=== PATIENT | male | born 1960 | race Hispanic/Latino ===

== ENCOUNTER 2018-07-08 15:39 | Inpatient (IN) | payer OTHER ==
--- NOTE | 2018-07-08 18:07 | C.PDOC ---
History Of Present Illness 57 y/o male, w/PMhx of IDDM and ETOH abuse, presents to the ER for ETOH withdrawal. Patient states that he feels tremulous, nauseous, and diaphoretic. Patient is requesting detox from ETOH. Denies having fever, headache,chills, and vomiting. Time Seen by Provider: 07/08/18 17:02 Chief Complaint (Nursing): Substance Abuse History Per: Patient History/Exam Limitations: no limitations Onset/Duration Of Symptoms: Days Current Symptoms Are (Timing): Still Present Severity: Moderate Past Medical History Reviewed: Historical Data, Nursing Documentation, Vital Signs Vital Signs: Last Vital Signs Temp 98.0 F 07/08/18 16:01 Pulse 108 H 07/08/18 16:01 Resp 16 07/08/18 16:01 BP 146/92 H 07/08/18 16:01 Pulse Ox 95 07/08/18 16:01 - Medical History PMH: HTN Surgical History: No Surg Hx Family History: States: No Known Family Hx - Social History Hx Alcohol Use: Yes Hx Substance Use: No - Immunization History Hx Tetanus Toxoid Vaccination: No Hx Influenza Vaccination: No Hx Pneumococcal Vaccination: No Review Of Systems Except As Marked, All Systems Reviewed And Found Negative. Constitutional: Negative for: Fever, Chills Gastrointestinal: Positive for: Nausea. Negative for: Vomiting Neurological: Negative for: Headache Physical Exam - Physical Exam Appears: Other (unkempt) Skin: No Normal Color (flushed), Warm, Dry, Other (abrasions to bilateral wrists) Head: Atraumatic, Normacephalic Eye(s): bilateral: Normal Inspection Nose: Normal Oral Mucosa: Moist Neck: Supple Chest: Symmetrical Cardiovascular: Rhythm Regular Respiratory: Normal Breath Sounds, No Rales, No Rhonchi, No Wheezing Gastrointestinal/Abdominal: Soft, No Tenderness, No Guarding, No Rebound, Other (obese) Neurological/Psych: Oriented x3, Normal Speech ED Course And Treatment - Laboratory Results Result Diagrams: 07/08/18 18:36 O2 Sat by Pulse Oximetry: 95 (RA) Pulse Ox Interpretation: Normal Medical Decision Making Medical Decision Making: Plan: --Labs --UA Disposition Counseled Patient/Family Regarding: Studies Performed, Diagnosis - Disposition Disposition: HOSPITALIZED Disposition Time: 19:07 Condition: GUARDED Forms: [employer] (Serbian) - POA Present On Arrival: None - Clinical Impression Clinical Impression: Alcohol abuse - Scribe Statement The provider has reviewed the documentation as recorded by the Scribe Margaret Chowdhury Provider Attestation: All medical record entries made by the Scribe were at my direction and personally dictated by me. I have reviewed the chart and agree that the record accurately reflects my personal performance of the history, physical exam, medical decision making, and the department course for this patient. I have also personally directed, reviewed, and agree with the discharge instructions and disposition. Physician Patient Turnover Patient Signed Over To: Laila Farrell Handoff Comments: med clearance and crisis.
[2018-07-08 18:55] LABS: BASO # 0.1 K/uL (0.0-0.2); BASO % 0.8 % (0.0-2.0); EOS % 0.6 % (0.0-4.0); HEMOGLOBIN 17.1 g/dL (12.0-18.0); MEAN CELL VOLUME 91.2 fL (80.0-94.0); MEAN PLATELET VOLUME 7.6 fL (7.2-11.7); MONO # 0.8 K/uL (0.0-0.8); MONO % 11.2 % (0.0-10.0); NEUT # 5.2 K/uL (1.8-7.0); NEUT % 73.4 % (50.0-75.0); NRBC % 0.3 % (0.0-2.0); RBC 5.52 Mil/uL (4.40-5.90)
[2018-07-08 19:03] LABS: URINE BACTERIA FEW (<OCC); URINE BILIRUBIN 1+ (NEGATIVE); URINE BLOOD 2+ (NEGATIVE); URINE CLARITY Hazy (Clear); URINE COLOR Amber (YELLOW); URINE GLUCOSE (UA) 3+ mg/dL (Normal); URINE LEUKOCYTE ESTERASE 2+ Leu/uL (Negative); URINE PROTEIN 3+ mg/dL (NEGATIVE)
[2018-07-08 19:27] LABS: ALB/GLOB RATIO 1.3 (1.0-2.1); ALBUMIN 4.7 g/dL (3.5-5.0); ALT/SGPT 79 U/L (21-72); AST/SGOT 143 U/L (17-59); BLOOD UREA NITROGEN 5 mg/dL (9-20); CALCIUM 9.3 mg/dl (8.6-10.4); GFR NON-AFRICAN AMERICAN > 60
[2018-07-08 19:32] LABS: BARBITURATES, UR NEGATIVE (NEGATIVE); OPIATES, UR NEGATIVE (NEGATIVE); PHENCYCLIDINE, UR NEGATIVE (NEGATIVE)
[2018-07-08 19:33] LABS: BENZODIAZEPINES, UR POSITIVE (NEGATIVE)
[2018-07-08] MEDS ORDERED: Tmp-Smz 800 mg-160 mg DS Tab PO STA (19:49)
[2018-07-09] MEDS: (Novolog) Insulin Aspart, Recombinant 100 u/ml 10 ml vial SC SCH ×4 (08:19→21:46)
[2018-07-09] MEDS: Tmp-Smz 800 mg-160 mg DS Tab PO SCH ×2 (10:37→21:32)
[2018-07-09] MEDS: Multiple Vitamins Tab PO SCH (10:37)
--- NOTE | 2018-07-09 13:26 | PCM.PSYCH ---
Initial Psychiatric Evaluation - Initial Psychiatric Evaluation Type of Admission: Voluntary Legal Status: Capacity Chief Complaint (in patient's own words): "I want to detox from alcohol" History of Present Illness and Precipitating Events: Patient seen, chart reviewed, case discussed Patient is a 57-year-old , unemployed white male with 2 children ages 27 and 30, who lives with his mother. The patient states that he is unable to work because of the neuropathy in his feet. The patient had his first drink at the age of 11 but his drinking became a problem for him in the past 2-3 years. The patient was clean from alcohol for 50+ days but then relapsed about 2 months ago and has been drinking 0.5 or more gallons of vodka per day. The patient denies any history of heroin, marijuana, or pill use and has been clean from Percocet and cocaine for 3 years but smokes 1.5 packs per day. The patient has been to detox once and to rehab once in the past. The patient denies any history of blackouts, seizures, or trauma. Past Psych History: denies but now feels somewhat depressed, no SI Past Medical History: Neuropathy in feet, DM Family Psych History: denies Current Medications: Active Medications Generic Name Dose Route Start Last Admin Trade Name Freq PRN Reason Stop Dose Admin Clonidine HCl 0.1 mg 07/08/18 21:00 07/09/18 05:30 Catapres PO 0.1 mg Q6 PRN Administration alcohol withdrawal Folic Acid 1 mg 07/09/18 10:00 07/09/18 10:37 Folic Acid PO 1 mg DAILY SONIA Administration Gabapentin 400 mg 07/09/18 14:00 Neurontin PO TID SON[facility] Hydroxyzine HCl 25 mg 07/08/18 22:10 07/08/18 22:24 Atarax PO 25 mg Q6H PRN Administration Anxiety Ibuprofen 400 mg 07/08/18 22:10 Motrin Tab PO Q6H PRN Pain, moderate (4-7) Insulin Aspart 0 unit 07/09/18 07:30 07/09/18 12:18 Novolog SC 6 units ACHS SONIA Administration Protocol Lorazepam 1 mg 07/08/18 21:00 07/09/18 05:30 Ativan PO 1 mg Q6 PRN Administration alcohol withdrawal Lorazepam 1 mg 07/08/18 22:00 07/09/18 10:43 Ativan PO 07/13/18 21:59 1 mg Q6H SONIA Administration Taper Multivitamins 1 tab 07/09/18 10:00 07/09/18 10:37 Hexavitamin PO 1 tab DAILY [facility]ONIA Administration Ondansetron HCl 4 mg 07/08/18 23:16 Zofran Tab PO Q6 PRN Nausea/Vomiting Quetiapine Fumarate 50 mg 07/09/18 22:00 Seroquel PO HS SON[facility] Thiamine HCl 100 mg 07/09/18 10:00 07/09/18 10:37 Vitamin B1 Tab PO 100 mg DAILY SONIA Administration Trazodone HCl 50 mg 07/08/18 22:00 07/08/18 22:25 Desyrel PO 50 mg HS PRN Administration Insomnia Trimethoprim/Sulfamethoxazole 1 tab 07/09/18 10:00 07/09/18 10:37 Bactrim Ds Tab PO 07/15/18 22:01 1 tab Q12H SONIA Administration Protocol Past Psychiatric History - Past Psychiatric History Previous Treatment History: None Pertinent Medical Hx (Current Medical&Sleep Prob, Allergies): Allergies Allergy/AdvReac Type Severity Reaction Status Date / Time No Known Allergies Allergy Verified 07/08/18 16:05 Quetiapine Fumarate [Seroquel] 50 tab PO HS MDD 50 07/08/18 Review of Systems - Integumentary Integumentary: Lesions (under the feet, small) - Neurological Neurological: Tremor - Psychiatric Psychiatric: Abnormal Sleep Pattern, Difficulty Concentrating, Irritability, Mood Swings. absent: Anxiety, Confusion, Depression, Hallucinations, Homicidal Ideation, Paranoia, Suicidal Ideation Mental Status Examination - Personal Presentation Personal Presentation: Looks stated age - Affect Affect: Broad - Motor Activity Motor Activity: Psychomotor Retardation - Reliability in Providing Information Reliability in Providing Information: Good - Speech Speech: Organized, Relevant, Coherent - Mood Mood: Neutral - Formal Thought Process Formal Thought Process: No Impairment - Obsessions/Compulsions Obsessions: No Compulsions: No - Cognitive Functions Orientation: Person, Place, Situation, Time Sensorium: Alert Attention/Concentration: Attentive Abstract Thinking: [place] Judgement: Intact, as evidence by: Good judgement Memory: Recent intact, as evidence by: Ability to recall events of the day, Remote intact, as evidenced by: Abilit to recall sig. life events - Risk Risk: Withdrawal, Diminished functioning - Strength & Assets Inventory Strength & Assets Inventory: Cooperative - Limitations Limitations: Other DSM 5 DX - DSM 5 DSM 5 Diagnosis: Alcohol withdrawal Alcohol use d/o--severe Tobacco use d/o Depressive d/o - unspecified - Recommended/Plan of Treatment Treatment Recommendations and Plan of Treatment: Taper with Ativan Gabapentin for augmentation remeron for dep and insomnia As needed medication All risks, benefits and alternatives of the meds discussed and the patient agreed and understood Attend groups and activities Supportive therapy and psychoeducation [place] for abstinence CBT for relapse prevention Encourage MAT Refer to rehab or IOP, and self-help groups Teach healthy lifestyle methods, i.e. diet, exercise, meditation Smoking cessation with [place] Nicotine patch if needed Podiatry consult 34 min Projected ELOS: 4-5 days - Smoking Cessation Smoking Cessation Initiated: Yes
[2018-07-10] MEDS: (Novolog) Insulin Aspart, Recombinant 100 u/ml 10 ml vial SC SCH ×4 (07:48→21:18)
[2018-07-10] MEDS: Multiple Vitamins Tab PO SCH (09:11)
[2018-07-10] MEDS: Tmp-Smz 800 mg-160 mg DS Tab PO SCH ×2 (09:16→21:18)
--- NOTE | 2018-07-10 11:19 | PCM.BM ---
<Jaimie Bills - Last Filed: 07/10/18 11:17> Treatment Plan Problems - Problems identified on initial assessmt potential for alcohol withdrawals Date Initiated: 07/08/18 Assessment reference: NA Status: Active Treatment assets and liabiliti Patient Assests: adapts well, cooperative, motivated, ADL independent, negotiates basic needs Patient Liabilities: financial problems, poor support system, substance abuse, medical problems, other - Milieu Protocol Maintain good personal hygiene: daily Encourage regular showers, daily Remind patient to perform daily oral care, daily Assist patient to perform ADL's Conduct patient checks and document Observation sheet: Q15 minutes Maintain personal safety: every shift Educate patient to report safety concerns to staff, every shift Monitor environment for contraband/sharps Medication safety: Monitor for expected outcome, potential side effects: every shift, Assess barriers to learning: every shift, Assess readiness for medication education: every shift Milieu Narrative: Taper with Ativan Gabapentin for augmentation if needed As needed medication All risks, benefits and alternatives of the meds discussed and the patient agreed and understood Attend groups and activities Supportive therapy and psychoeducation [place] for abstinence CBT for relapse prevention Encourage MAT Refer to rehab or IOP, and self-help groups Teach healthy lifestyle methods, i.e. diet, exercise, meditation Smoking cessation with [place] Nicotine patch if needed Discharge/Continuing Care - Treatment Team Participation Patient/Family/SO Statement: Taper with Ativan Gabapentin for augmentation if needed As needed medication All risks, benefits and alternatives of the meds discussed and the patient agreed and understood Attend groups and activities Supportive therapy and psychoeducation [place] for abstinence CBT for relapse prevention Encourage MAT Refer to rehab or IOP, and self-help groups Teach healthy lifestyle methods, i.e. diet, exercise, meditation Smoking cessation with [place] Nicotine patch if needed <Shamika Solis - Last Filed: 07/11/18 13:46> Family Contact Family involvement: Famliy/SO not involved - Goals for Treatment Patient goals for treatment: Complete detox and transition to an IOP in [facility]. Discharge/Continuing Care - Education Needs Education Needs: Patient Medication, Patient Diagnosis/Disease Process, Patient Coping Skills, Patient Anger Management skills, Patient Placement options, Patient Community resources - Discharge Discharge Criteria: No longer exhibiting s/s of withdrawal, Reduction of target symptoms Discharge to:: Home - Treatment Team Participation Patient/Family/SO Statement: 07/11/18 13:45 "I'd like to an IOP in [facility]." Discussed with Family/SO: No Was Patient/Family/SO present at Treatment Team Meeting: Yes
--- NOTE | 2018-07-10 13:25 | PCM.PYCHPN ---
Psychiatric Progress Note - Psychiatric Progress Note Patient Chief Complaint: "I want to detox from alcohol" Medication Change: Yes Medical Record Reviewed: Yes Mental Status Examination - Cognitive Function Orientation: Person, Place, Situation, Time - Mood Mood: Neutral - Affect Affect: Broad - Formal Thought Process Formal Thought Process: No Impairment - Homicidal Ideation Homicidal Ideation: No Goal/Treatment Plan - Goal/Treatment Plan Progress Toward Problem(s) and Goals/Treatment Plan: Taper with Ativan Gabapentin for augmentation remeron for dep and insomnia As needed medication All risks, benefits and alternatives of the meds discussed and the patient agreed and understood Attend groups and activities Supportive therapy and psychoeducation [place] for abstinence CBT for relapse prevention Encourage MAT Refer to rehab or IOP, and self-help groups Teach healthy lifestyle methods, i.e. diet, exercise, meditation Smoking cessation with [place] Nicotine patch if needed Podiatry consult 34 min
[2018-07-11] MEDS: (Novolog) Insulin Aspart, Recombinant 100 u/ml 10 ml vial SC SCH ×4 (08:16→21:05)
[2018-07-11] MEDS: Multiple Vitamins Tab PO SCH (10:14)
[2018-07-11] MEDS: Tmp-Smz 800 mg-160 mg DS Tab PO SCH ×2 (10:15→21:07)
[2018-07-12] MEDS ORDERED: (Novolog) Insulin Aspart, Recombinant 100 u/ml 10 ml vial SC ONE (02:35)
[2018-07-12] MEDS: (Novolog) Insulin Aspart, Recombinant 100 u/ml 10 ml vial SC SCH ×4 (08:16→21:00)
[2018-07-12] MEDS: Tmp-Smz 800 mg-160 mg DS Tab PO SCH ×2 (10:31→21:19)
[2018-07-12] MEDS: Multiple Vitamins Tab PO SCH (10:32)
[2018-07-12 10:42] VITALS: RESP 18
[2018-07-12] MEDS ORDERED: Dextrose 50% SYRINGE Inj (50 ml) IV PRN (13:21)
[2018-07-12] MEDS ORDERED: Glucagon Recombinant 1 mg Inj IM PRN (13:21)
--- NOTE | 2018-07-12 13:33 | CP.PCM.CON ---
<Mary Ann Grant - Last Filed: 07/12/18 15:43> History of Present Illness - History of Present Illness History of Present Illness: Medicine consult for blood sugar management of a 58 year old male with PMHx of DM2, neuropathy, HTN, alcohol abuse admitted to detox until for alcohol detox. Patient reports he normally take novolog and trujeo at home dosed according to blood glucose numbers. Pt reports his readings are generally 300-400s at home. Pt says he has been eating very poorly while on the unit and drinking lots of sugary beverages as he does not like water. Patient was diagnosed with diabetes 3 years ago and has since developed diabetic neuropathy as a consequence, having difficulty walking and needing podiatry to groom his feet. Pt reports he is completing detox tomorrow and [place] [facility] [place]. pmhx:Alcohol abuse, DM2, diabetic neuropathy, HTN meds: Novalog, trujeo, gabapentin, unknown antihypertensice Allergies: NKDA Sochx: 50 pack year smoking, 1/2 gallon vodka and 12 beers/day Review of Systems - EENT Eyes: absent: Blurred Vision - Cardiovascular Cardiovascular: absent: Chest Pain, Pedal Edema - Respiratory Respiratory: absent: Dyspnea - Gastrointestinal Gastrointestinal: absent: Abdominal Pain, Nausea - Genitourinary Genitourinary: absent: Dysuria - Musculoskeletal Musculoskeletal: Tingling. absent: Arthralgias - Neurological Neurological: Burning Sensations, Tingling Past Patient History - Past Medical History & Family History Past Medical History?: Yes - Past Social History Smoking Status: Heavy Smoker > 10 Cigarettes Daily - CARDIAC Hx Cardiac Disorders: No Hx Hypertension: Yes - PULMONARY Hx Tuberculosis: No - NEUROLOGICAL HX Cerebrovascular Accident: No - ENDOCRINE/METABOLIC Hx Diabetes Mellitus Type 2: Yes - HEMATOLOGICAL/ONCOLOGICAL Hx Cancer: Yes Hx Human Immunodeficiency Virus (HIV): No - MUSCULOSKELETAL/RHEUMATOLOGICAL Hx Falls: No - GENITOURINARY/GYNECOLOGICAL Hx Sexually Transmitted Disorders: No - PSYCHIATRIC Hx Substance Use: Yes - SURGICAL HISTORY Other/Comment: "HAND AND LEG SX" - ANESTHESIA Hx Anesthesia: Yes Hx Anesthesia Reactions: No Hx Malignant Hyperthermia: No Meds Allergies/Adverse Reactions: Allergies Allergy/AdvReac Type Severity Reaction Status Date / Time No Known Allergies Allergy Verified 07/08/18 16:05 - Medications Medications: Current Medications Clonidine HCl (Catapres) 0.1 mg PO Q6 PRN PRN Reason: alcohol withdrawal Last Admin: 07/10/18 16:29 Dose: 0.1 mg Dextrose (Glutose 15) 0 gm PO ONCE PRN; Protocol PRN Reason: Hypoglycemia Protocol Dextrose (Dextrose 50% Inj) 0 ml IV STAT PRN; Protocol PRN Reason: Hypoglycemia Protocol Folic Acid (Folic Acid) 1 mg PO DAILY [facility] Last Admin: 07/12/18 10:58 Dose: Not Given Gabapentin (Neurontin) 400 mg PO TID [facility] Last Admin: 07/12/18 10:32 Dose: 400 mg Glucagon (Glucagen Diagnostic Kit) 0 mg IM STAT PRN; Protocol PRN Reason: Hypoglycemia Protocol Hydroxyzine HCl (Atarax) 25 mg PO Q6H PRN PRN Reason: Anxiety Last Admin: 07/10/18 16:29 Dose: 25 mg Dextrose (Dextrose 5% In Water 1000 Ml) 1,000 mls @ 0 mls/hr IV .Q0M PRN; Protocol PRN Reason: Hypoglycemia Protocol Ibuprofen (Motrin Tab) 400 mg PO Q6H PRN PRN Reason: Pain, moderate (4-7) Insulin Aspart (Novolog) 0 unit SC ACHS [facility]; Protocol Lorazepam (Ativan) 1 mg PO Q6 PRN PRN Reason: alcohol withdrawal Last Admin: 07/11/18 22:32 Dose: 1 mg Lorazepam (Ativan) 1 mg PO Q12H [facility]; Taper Stop: 07/13/18 21:59 Last Admin: 07/12/18 10:32 Dose: 1 mg Multivitamins (Hexavitamin) 1 tab PO DAILY [facility] Last Admin: 07/12/18 10:32 Dose: 1 tab Nicotine (Nicoderm Cq) 1 patch TD DAILY [facility] Last Admin: 07/12/18 10:31 Dose: 1 patch Ondansetron HCl (Zofran Tab) 4 mg PO Q6 PRN PRN Reason: Nausea/Vomiting Quetiapine Fumarate (Seroquel) 50 mg PO HS [facility] Last Admin: 07/11/18 21:07 Dose: 50 mg Thiamine HCl (Vitamin B1 Tab) 100 mg PO DAILY [facility] Last Admin: 07/12/18 10:31 Dose: 100 mg Trazodone HCl (Desyrel) 50 mg PO HS PRN PRN Reason: Insomnia Last Admin: 07/11/18 21:06 Dose: 50 mg Trimethoprim/Sulfamethoxazole (Bactrim Ds Tab) 1 tab PO Q12H SONIA; Protocol Stop: 07/15/18 22:01 Last Admin: 07/12/18 10:31 Dose: 1 tab Physical Exam - Constitutional Appears: Unkempt - Head Exam Head Exam: ATRAUMATIC, NORMAL INSPECTION, NORMOCEPHALIC - Eye Exam Eye Exam: EOMI, Normal appearance - ENT Exam ENT Exam: Mucous Membranes Moist, Normal Exam - Neck Exam Neck exam: Positive for: Normal Inspection - Respiratory Exam Respiratory Exam: Clear to Auscultation Bilateral, NORMAL BREATHING PATTERN - Cardiovascular Exam Cardiovascular Exam: REGULAR RHYTHM, +S1, +S2 - GI/Abdominal Exam GI & Abdominal Exam: Normal Bowel Sounds, Soft - Extremities Exam Extremities exam: Positive for: normal inspection. Negative for: calf tenderness, pedal edema - Neurological Exam Neurological exam: Alert, Oriented x3 - Psychiatric Exam Psychiatric exam: Normal Affect, Normal Mood - Skin Skin Exam: Dry, Intact, Normal Color, Warm Results - Vital Signs Recent Vital Signs: Last Vital Signs Temp 97.4 F L 07/12/18 10:00 Pulse 90 07/12/18 10:00 Resp 18 07/12/18 10:00 BP 138/91 H 07/12/18 10:00 Pulse Ox 94 L 07/12/18 10:00 - Labs Result Diagrams: 07/08/18 18:36 07/08/18 18:36 Labs: Laboratory Results - last 24 hr 07/11/18 07/11/18 07/11/18 07:26 11:38 16:22 POC Glucose (mg/dL) 417 H* 348 H 388 H 07/11/18 07/12/18 07/12/18 20:58 02:03 08:08 POC Glucose (mg/dL) 330 H 420 H* 424 H* 07/12/18 12:07 POC Glucose (mg/dL) 344 H Assessment & Plan - Assessment and Plan (Free Text) Assessment: 58 year old male being treated for blood sugar management while admitted to detox from alcohol Plan: DM2 -ISS high dose -reluctant to start new long acting as pt will be d/c tomorrow with no follow up -accuchecks achs -hypoglycemia protocol -discussed dietary modifications with patient -diabetic diet -gabapentin for neuropathy -podiatry consulted for foot care HTN -continue with meds Alcohol withdrawal -management per psych Discused with Dr. Webb -Mary Ann Grant, PGY-1 <Mario Webb - Last Filed: 07/12/18 17:17> Meds - Medications Medications: Current Medications Clonidine HCl (Catapres) 0.1 mg PO Q6 PRN PRN Reason: alcohol withdrawal Last Admin: 07/10/18 16:29 Dose: 0.1 mg Dextrose (Glutose 15) 0 gm PO ONCE PRN; Protocol PRN Reason: Hypoglycemia Protocol Dextrose (Dextrose 50% Inj) 0 ml IV STAT PRN; Protocol PRN Reason: Hypoglycemia Protocol Folic Acid (Folic Acid) 1 mg PO DAILY [facility] Last Admin: 07/12/18 10:58 Dose: Not Given Gabapentin (Neurontin) 400 mg PO TID [facility] Last Admin: 07/12/18 14:16 Dose: 400 mg Glucagon (Glucagen Diagnostic Kit) 0 mg IM STAT PRN; Protocol PRN Reason: Hypoglycemia Protocol Hydroxyzine HCl (Atarax) 25 mg PO Q6H PRN PRN Reason: Anxiety Last Admin: 07/10/18 16:29 Dose: 25 mg Dextrose (Dextrose 5% In Water 1000 Ml) 1,000 mls @ 0 mls/hr IV .Q0M PRN; Protocol PRN Reason: Hypoglycemia Protocol Ibuprofen (Motrin Tab) 400 mg PO Q6H PRN PRN Reason: Pain, moderate (4-7) Insulin Aspart (Novolog) 0 unit SC ACHS [facility]; Protocol Lorazepam (Ativan) 1 mg PO Q6 PRN PRN Reason: alcohol withdrawal Last Admin: 07/11/18 22:32 Dose: 1 mg Lorazepam (Ativan) 1 mg PO Q12H [facility]; Taper Stop: 07/13/18 21:59 Last Admin: 07/12/18 10:32 Dose: 1 mg Multivitamins (Hexavitamin) 1 tab PO DAILY [facility] Last Admin: 07/12/18 10:32 Dose: 1 tab Nicotine (Nicoderm Cq) 1 patch TD DAILY [facility] Last Admin: 07/12/18 10:31 Dose: 1 patch Ondansetron HCl (Zofran Tab) 4 mg PO Q6 PRN PRN Reason: Nausea/Vomiting Quetiapine Fumarate (Seroquel) 50 mg PO HS [facility] Last Admin: 07/11/18 21:07 Dose: 50 mg Thiamine HCl (Vitamin B1 Tab) 100 mg PO DAILY [facility] Last Admin: 07/12/18 10:31 Dose: 100 mg Trazodone HCl (Desyrel) 50 mg PO HS PRN PRN Reason: Insomnia Last Admin: 07/11/18 21:06 Dose: 50 mg Trimethoprim/Sulfamethoxazole (Bactrim Ds Tab) 1 tab PO Q12H [facility]ONIA; Protocol Stop: 07/15/18 22:01 Last Admin: 07/12/18 10:31 Dose: 1 tab Results - Vital Signs Recent Vital Signs: Last Vital Signs Temp 97.4 F L 07/12/18 10:00 Pulse 90 07/12/18 10:00 Resp 18 07/12/18 10:00 BP 138/91 H 07/12/18 10:00 Pulse Ox 94 L 07/12/18 10:00 - Labs Result Diagrams: 07/08/18 18:36 07/08/18 18:36 Labs: Laboratory Results - last 24 hr 07/11/18 07/11/18 07/11/18 07:26 11:38 16:22 POC Glucose (mg/dL) 417 H* 348 H 388 H 07/11/18 07/12/18 07/12/18 20:58 02:03 08:08 POC Glucose (mg/dL) 330 H 420 H* 424 H* 07/12/18 12:07 POC Glucose (mg/dL) 344 H Attending/Attestation - Attestation I have personally seen and examined this patient.: Yes I have fully participated in the care of the patient.: Yes I have reviewed all pertinent clinical information: Yes Notes (Text): 07/12/18 17:07 Medical attending: Patient was seen and examined by me. Agree with the above note by the resident The patient was not in any acute distress when we came and saw, he was in his room and sleeping - he woke up and we started to talk to him His recent accuchecks have been high - they tell me that there are plans for discharge tomorrow. He was not thrilled about starting a brand new medication or increases of his insulin. He has been taking a lot of sugar drinks while here and we advised the patient that because he is being discharged tomorrow that we would not be making any immediate changes or brand new medications at this time. He is continuing with his two medications for DM at this time. While we were talking to him we discussed diet, lifestyle changes, as well as watching his sugar intake as he has been repeatedly drinking sugary drinks while here. Mario Webb
--- NOTE | 2018-07-13 07:25 | CP.PCM.PN ---
<Mary Ann Grant - Last Filed: 07/13/18 12:03> Subjective - Date & Time of Evaluation Date of Evaluation: 07/13/18 Time of Evaluation: 11:35 - Subjective Subjective: Patient examined in day room, sitting comfortably on sofa watching TV. No acute overnight events. Nursing reports pt continues to be non-compliant with suggestions to watch sugar intake. Denies chest pain, SOB, nausea, diarrhea. Pt reports he is going home today and will follow up with his PMD at home. Objective - Vital Signs/Intake and Output Vital Signs (last 24 hours): Temp Pulse Resp BP Pulse Ox 98.5 F 88 18 115/77 96 07/12/18 20:50 07/12/18 20:50 07/12/18 20:50 07/12/18 20:50 07/12/18 20:50 - Medications Medications: Current Medications Clonidine HCl (Catapres) 0.1 mg PO Q6 PRN PRN Reason: alcohol withdrawal Last Admin: 07/12/18 21:01 Dose: 0.1 mg Dextrose (Glutose 15) 0 gm PO ONCE PRN; Protocol PRN Reason: Hypoglycemia Protocol Dextrose (Dextrose 50% Inj) 0 ml IV STAT PRN; Protocol PRN Reason: Hypoglycemia Protocol Folic Acid (Folic Acid) 1 mg PO DAILY [facility] Last Admin: 07/12/18 10:58 Dose: Not Given Gabapentin (Neurontin) 400 mg PO TID [facility] Last Admin: 07/12/18 17:13 Dose: 400 mg Glucagon (Glucagen Diagnostic Kit) 0 mg IM STAT PRN; Protocol PRN Reason: Hypoglycemia Protocol Hydroxyzine HCl (Atarax) 25 mg PO Q6H PRN PRN Reason: Anxiety Last Admin: 07/12/18 21:01 Dose: 25 mg Dextrose (Dextrose 5% In Water 1000 Ml) 1,000 mls @ 0 mls/hr IV .Q0M PRN; Protocol PRN Reason: Hypoglycemia Protocol Ibuprofen (Motrin Tab) 400 mg PO Q6H PRN PRN Reason: Pain, moderate (4-7) Insulin Aspart (Novolog) 0 unit SC ACHS SONIA; Protocol Last Admin: 07/12/18 21:00 Dose: 3 units Lorazepam (Ativan) 1 mg PO Q6 PRN PRN Reason: alcohol withdrawal Last Admin: 07/11/18 22:32 Dose: 1 mg Lorazepam (Ativan) 1 mg PO Q24H [facility]; Taper Stop: 07/13/18 21:59 Last Admin: 07/12/18 21:01 Dose: 1 mg Multivitamins (Hexavitamin) 1 tab PO DAILY [facility] Last Admin: 07/12/18 10:32 Dose: 1 tab Nicotine (Nicoderm Cq) 1 patch TD DAILY [facility] Last Admin: 07/12/18 10:31 Dose: 1 patch Ondansetron HCl (Zofran Tab) 4 mg PO Q6 PRN PRN Reason: Nausea/Vomiting Quetiapine Fumarate (Seroquel) 50 mg PO HS SONIA Last Admin: 07/12/18 21:01 Dose: 50 mg Thiamine HCl (Vitamin B1 Tab) 100 mg PO DAILY [facility] Last Admin: 07/12/18 10:31 Dose: 100 mg Trazodone HCl (Desyrel) 50 mg PO HS PRN PRN Reason: Insomnia Last Admin: 07/12/18 21:01 Dose: 50 mg Trimethoprim/Sulfamethoxazole (Bactrim Ds Tab) 1 tab PO Q12H [facility]; Protocol Stop: 07/15/18 22:01 Last Admin: 07/12/18 21:19 Dose: 1 tab - Labs Labs: 07/08/18 18:36 07/08/18 18:36 - Constitutional Appears: Non-toxic, No Acute Distress - Head Exam Head Exam: ATRAUMATIC, NORMAL INSPECTION, NORMOCEPHALIC - Eye Exam Eye Exam: EOMI, Normal appearance - ENT Exam ENT Exam: Mucous Membranes Moist, Normal Exam - Neck Exam Neck Exam: Normal Inspection - Respiratory Exam Respiratory Exam: NORMAL BREATHING PATTERN. absent: Respiratory Distress - Cardiovascular Exam Cardiovascular Exam: REGULAR RHYTHM, +S1, +S2 - GI/Abdominal Exam GI & Abdominal Exam: Soft, Normal Bowel Sounds - Extremities Exam Extremities Exam: Normal Inspection. absent: Calf Tenderness, Pedal Edema - Neurological Exam Neurological Exam: Alert, Awake, Oriented x3 - Psychiatric Exam Psychiatric exam: Normal Affect, Normal Mood - Skin Skin Exam: Dry, Intact, Normal Color, Warm Assessment and Plan - Assessment and Plan (Free Text) Assessment: 58 year old male being treated for blood sugar management while admitted to detox from alcohol Plan: DM2 -ISS high dose -reluctant to start new long acting as pt is discharged and awaiting ride home -accuchecks achs -hypoglycemia protocol -discussed dietary modifications with patient -diabetic diet -gabapentin for neuropathy -podiatry consulted for foot care HTN -continue with meds Alcohol withdrawal -management per psych Discused with Dr. Webb -Mary Ann Grant, PGY-1 <Mario Webb - Last Filed: 07/13/18 17:10> Objective - Vital Signs/Intake and Output Vital Signs (last 24 hours): Temp Pulse Resp BP Pulse Ox 97.6 F 60 18 110/72 95 07/13/18 09:00 07/13/18 09:00 07/13/18 09:00 07/13/18 09:00 07/13/18 09:00 - Labs Labs: 07/08/18 18:36 07/08/18 18:36 Attending/Attestation - Attestation I have personally seen and examined this patient.: No I have fully participated in the care of the patient.: Yes I have reviewed all pertinent clinical information, including history, physical exam and plan: Yes Notes (Text): 07/13/18 17:09 Medical attending: Patient left before I could see him today, nevertheless I reviewed the above note by the medical oncologist and agree with the above Yesterday I did meet him and discussed with him the need for life style modification and also patient education. I hope he will be willing to follow up with his primary care physician Mario Webb
[2018-07-13] MEDS: (Novolog) Insulin Aspart, Recombinant 100 u/ml 10 ml vial SC SCH ×2 (08:18→12:30)
--- NOTE | 2018-07-13 08:19 | PCM.PYCHDC ---
Mental Status Examination - Mental Status Examination Orientation: Person, Place, Situation, Time Memory: Intact Mood: Neutral Affect: Constricted Speech: Soft Attention: WNL Concentration: WNL Association: WNL Fund of Knowledge: WNL Formal Thought Process: No Impairment Description of patient's judgement and insight: good, fair Psychotic Thoughts and Behaviors: denies any AVH Suicidal Ideation: No Current Homicidal Ideation?: No Discharge Summary - Discharge Note Reason for Hospitalization: Patient seen, chart reviewed, case discussed Patient is a 57-year-old , unemployed white male with 2 children ages 27 and 30, who lives with his mother. The patient states that he is unable to work because of the neuropathy in his feet. The patient had his first drink at the age of 11 but his drinking became a problem for him in the past 2-3 years. The patient was clean from alcohol for 50+ days but then relapsed about 2 months ago and has been drinking 0.5 or more gallons of vodka per day. The patient denies any history of heroin, marijuana, or pill use and has been clean from Percocet and cocaine for 3 years but smokes 1.5 packs per day. The patient has been to detox once and to rehab once in the past. The patient denies any history of blackouts, seizures, or trauma. Past Psych History: denies but now feels somewhat depressed, no SI Past Medical History: Neuropathy in feet, DM Laboratory Data: Abnormal Lab Results 07/12/18 07/12/18 07/12/18 12:07 16:33 20:53 POC Glucose (mg/dL) 344 H 391 H 392 H 07/13/18 07:24 POC Glucose (mg/dL) 327 H Consultations:: List each consultation separately and include: 1. Reason for request. 2. Findings. 3. Follow-up Summary of Hospital Course include:: 1. Description of specific treatment plan utilized for patients during their course of treatmen. 2. Summarize the time- course for resolution of acute symptoms and/or regressed behaviors. 3. Describe issues identified and worked on during hospitalization. 4. Describe medication utilized. 5. Describe medical problems identified and treated. 6. Reassessment of suicide risk - Final Diagnosis (DSM 5) Condition upon Discharge: STABLE DSM 5: Alcohol withdrawal Alcohol use d/o--severe Tobacco use d/o Depressive d/o - unspecified Disposition: HOME/ ROUTINE Prescriptions/Medication Reconciliation: Gabapentin [Neurontin] 400 mg PO TID #90 cap QUEtiapine [SEROquel] 50 mg PO HS #30 tab traZODone [Desyrel] 50 mg PO HS PRN #30 tab PRN Reason: Insomnia
[2018-07-13] MEDS: Multiple Vitamins Tab PO SCH (09:05)
[2018-07-13] MEDS: Tmp-Smz 800 mg-160 mg DS Tab PO SCH (09:06)
[2018-07-13 11:14] VITALS: BP 110/72; PULSE 60; TEMP 97.6; O2SAT 95
== END 2018-07-13 15:47 | disposition home or self-care (01) | DRG 426 ==
LOC: C.ER 15:39 → C.7D 19:50
PROVIDERS: ADMIT Psychiatry & Neurology Psychiatry; ATTEND Psychiatry & Neurology Psychiatry
PROC: GZ56ZZZ Individual Psychotherapy, Supportive (ICD-10-PCS; principal; 2018-07-08)
DX: F32.9 Major depressive disorder, single episode, unspecified (principal); E11.40 Type 2 diabetes mellitus with diabetic neuropathy, unspecified; N39.0 Urinary tract infection, site not specified; F10.230 Alcohol dependence with withdrawal, uncomplicated; Z79.4 Long term (current) use of insulin; Z72.0 Tobacco use; I10 Essential (primary) hypertension; G47.00 Insomnia, unspecified; Z91.19 Patient's noncompliance with other medical treatment and regimen; Y90.9 Presence of alcohol in blood, level not specified